=== PATIENT | male | born 1955 | race Two or more races ===

== ENCOUNTER 2016-06-30 21:04 | Emergency (ER) | payer MEDICAID ==
[2016-06-30 21:12] VITALS: TEMP 97.4; BMI 24.8
--- NOTE | 2016-06-30 21:51 | EDPRACDOC ---
- General Information Information Source: Patient, Family Mode Of Arrival: Car - History of Present Illness Onset: 3 HOURS HPI: Pt with hx of prostate CA with mets to bone undergoing radiation and chemo tx c/ o mild cp, and sob with uncontrolled pain in left arm, right arm and upper back and neck x 4 hrs. Pain was sudden onset while sitting. Also, left arm and left leg has some weakness x 20 days, with numbness and tingling. Denies PURCELL, change in vision, fever, N/V/D, cough, change in urine or BM. Has tried 2 tabs of morphine 15 mg at 7pm and 9pm without relief. Med hx = prostate CA. Denies blood thinner use. Pain Location: Reports: Cervical, Lumbar, Thoracic Pain Radiates To: Reports: Arm, Shoulder, Neck Pain Caused By: Reports: Spontaneous Circumstances: Reports: Unknown Relevant History: Reports: Cancer Pain Severity: Reports: Severe Pain Quality: Reports: Aching, Sharp Worsened By: Reports: Movement <Tra Bhatia - Last Filed: 07/01/16 00:52> <Sammy Almeida - Last Filed: 07/01/16 02:33> - General Information Chief Complaint: Back Pain Stated Complaint: BACK PAIN Home Medications: Home Medications Naloxone HCl [Narcan] 4 mg NS DIR PRN #1 spray 06/06/16 Prednisone [Deltasone, Orasone] 10 mg PO TID 06/06/16 Methadone [Dolophine] 10 mg PO TID 06/08/16 Omeprazole [Prilosec] 20 mg PO BID 06/08/16 Morphine Sulfate 1 - 2 tab PO Q4-6H PRN 06/17/16 Meclizine HCl [Antivert] 25 - 50 mg PO Q6 #20 tablet 06/18/16 Ondansetron [Zofran Odt] 4 mg PO Q6H #30 tab.rapdis 06/18/16 Amoxicillin/Potassium Clav [Augmentin 875-125 Tablet] 1 each PO BID #20 tablet 07/01/16 Azithromycin [Zithromax] 250 mg PO DAILY #6 tablet 07/01/16 Oxycodone HCl/Acetaminophen [Percocet 5-325 mg Tablet] 1 each PO Q4 #20 tablet 07/01/16 Prednisone [Sterapred 10 mg/6 day pack] 21 tab PO DIR #1 pack 07/01/16 Allergies/Adverse Reactions: Allergies Allergy/AdvReac Type Severity Reaction Status Date / Time No Known Allergies Allergy Verified 06/30/16 21:12 ED Past Medical History - History Reviewed Yes Nurses notes reviewed and agree except as marked - Patient Medical History Respiratory History: Denies: Pneumonia Psychological History: Denies: Depression, Anxiety, Substance Use Disorder Systemic History: Reports: Cancer (prostate, pelvis,bone-radiation treatments) Surgical History: Reports: Hernia Surgery, Other (ORCHIECTOMY BILATERAL) - Family Medical History Reports: Diabetes (MOTHER), Cancer (FATHER LUNG CA, HALF BROTHER PROSTATE CA), Stroke (SISTER). Denies: Hypertension, Cardiac Disorders - Social Medical History Smoking Status: Former smoker Social History: Denies: Substance Use Disorder <Tra Bhatia - Last Filed: 07/01/16 00:52> EDM Review of Systems - Review of Systems ROS Negative Except as Marked: Yes All systems reviewed and were negative except as marked Neurological: Numbness, Tingling (left hand, left leg) Musculoskeletal: Arm (left), Back, Leg (left), Shoulder (left and right) ROS Comments: prostate CA <Tra Bhatia - Last Filed: 07/01/16 00:52> - Physical Exam Constitutional: No apparent distress, Alert Oriented to: Time, Person, Place Last recorded Vital Signs: Last Vital Signs Temp 97.4 F L 06/30/16 21:09 Pulse 75 06/30/16 21:09 Resp 20 06/30/16 21:09 BP 149/72 06/30/16 21:09 Pulse Ox 98 06/30/16 21:09 Oxygen Pulse Oxygen Saturation 98 O2 Device Room Air Oxygen Flow Rate Fraction of Inspired Oxygen ( FIO2) - HEENT Head: Normal Eye Exam: negative: Conjunctival Injection, Scleral Icterus Oropharynx: negative: Drooling TMJ: Normal Nose: No Symptoms Reported Neck: Normal - Respiratory/Cardiovascular Respiratory: Normal - CTA Cardiovascular: Normal - GI Auscultation: Normal Palpation: Normal Tenderness: Non tender - Musculoskeletal Back: Other (bony and paraspinal tenderness) Extremities: Pedal Pulse, Radial Pulse, Other (bilateral arms are painful with movement and tender) - Integumentary Skin: Normal - Neurologic Motor Function: Abnormal (left hand sampler radioactive waste weak, left shoulder wopnt rise) Mood Description: Normal Thought: Coherent Perception: Normal Other Exam Findings: Weakness in rasing left shoulder and left hand sampler radioactive waste. Pt able to pull if you hold his arm, can't push. No other focal deficits noted. <Tra Bhatia - Last Filed: 07/01/16 00:52> - Physical Exam Last recorded Vital Signs: Last Vital Signs Temp 97.4 F L 06/30/16 21:09 Pulse 71 07/01/16 02:21 Resp 20 07/01/16 02:21 BP 121/64 07/01/16 02:21 Pulse Ox 98 07/01/16 02:21 Oxygen Pulse Oxygen Saturation 98 O2 Device Room Air Oxygen Flow Rate Fraction of Inspired Oxygen ( FIO2) <Sammy Almeida - Last Filed: 07/01/16 02:33> ED Back Exam - Neurologic Motor Deficit: None - Musculoskeletal Cervical: Tender (bomy and paraspinal tenderness) Thoracic: Tender (bomy and paraspinal tenderness) Lumbar: Normal <Tra Bhatia - Last Filed: 07/01/16 00:52> - Results 06/30/16 22:25 06/30/16 22:25 - EKG EKG #1 EKG Time: 22:11 -: Yes EKG interpreted by me Rate: bpm: 68 Rhythm: NSR ST: Nonsp Comparison: 06/17/16 (no sig change) - Diagnostic Imaging Head Image interpreted by: Radiologist EXAM: CT HEAD WITHOUT CONTRAST CT CERVICAL SPINE WITHOUT CONTRAST TECHNIQUE: Multidetector CT imaging of the head and cervical spine was performed following the standard protocol without intravenous contrast. Multiplanar CT image reconstructions of the cervical spine were also generated. COMPARISON: Head CT dated 06/18/16 FINDINGS: CT HEAD FINDINGS The ventricles and the sulci are appropriate in size for the patient's age. There is no intracranial hemorrhage. No midline shift or mass effect identified. The gaming-white matter differentiation is preserved. The visualized paranasal sinuses and mastoid air cells are well aerated. There is sclerotic lesion at the base of the skull compatible with known metastatic disease. The calvarium is intact. CT CERVICAL SPINE FINDINGS There is no acute fracture or subluxation of the cervical spine. There is diffuse sclerotic lesions compatible with metastatic disease. There is complete sclerosis of the C3 vertebrae. Mild multilevel degenerative changes.The odontoid and spinous processes are intact.There is normal anatomic alignment of the C1-C2 lateral masses. The visualized soft tissues appear unremarkable. A right pectoral Port-A-Cath is partially visualized. IMPRESSION: No acute intracranial pathology. Extensive multilevel cervical osseous metastatic disease. No acute fracture. Electronically Signed By: Dougie Trimble M.D. On: 07/01/2016 00:25 <Tra Bhatia - Last Filed: 07/01/16 00:52> - Results 06/30/16 22:25 06/30/16 22:25 WBC 5.1 xk/uL (3.8-10.8) 06/30/16 22:25 RBC 3.18 xM/uL (4.70-6.10) L 06/30/16 22:25 Hgb 9.2 g/dL (14.0-18.0) L 06/30/16 22:25 Hct 27.3 % (42-52) L 06/30/16 22:25 MCV 86 fL (80-94) 06/30/16 22:25 MCH 29.0 pg (27-32) 06/30/16 22:25 MCHC 33.8 g/dl (33-36) 06/30/16 22:25 RDW 18.3 % (11.5-14.5) H 06/30/16 22:25 Plt Count 173 xk/uL (130-400) 06/30/16 22:25 MPV 6.3 fL (7.4-10.4) L 06/30/16 22:25 Neut % (Auto) 84.7 % (45-76) H 06/30/16 22:25 Lymph % (Auto) 8.2 % (17-44) L 06/30/16 22:25 [place] % (Auto) 6.7 % (3-10) 06/30/16 22:25 Eos % (Auto) 0.1 % (0-5) 06/30/16 22:25 Baso % (Auto) 0.3 % (0-2) 06/30/16 22:25 Absolute Neuts (auto) 4.28 xk/uL (1.7-8.2) 06/30/16 22:25 Absolute Lymphs (auto) 0.41 xk/uL (0.65-4.75) L 06/30/16 22:25 PT 11.4 SEC (9.2-11.2) H 06/30/16 22:25 INR 1.1 06/30/16 22:25 APTT 31.6 SEC (22-35) 06/30/16 22:25 D-Dimer Quant (PE/DVT) 4771 ng/mL (<500) H 06/30/16 22:25 Sodium 127 mEq/L (137-146) L 06/30/16 22:25 Potassium 3.7 mEq/L (3.5-5.1) 06/30/16 22:25 Chloride 91 mEq/L (98-107) L 06/30/16 22:25 Carbon Dioxide 29 mMOL/L (22-33) 06/30/16 22:25 Anion Gap 11 mEq/L (8-16) 06/30/16 22:25 BUN 13 MG/DL (9-20) 06/30/16 22:25 Creatinine 0.60 MG/DL (0.66-1.25) L 06/30/16 22:25 Estimated GFR (MDRD) > 60 mL/min (>=60) 06/30/16 22:25 Glucose 109 MG/DL (70-99) H 06/30/16 22:25 Calculated Osmolality 246 MOs/Kg (270-290) L 06/30/16 22:25 Calcium 7.2 MG/DL (8.4-10.2) L 06/30/16 22:25 Corrected Calcium 7.9 MG/DL (8.4-10.2) L 06/30/16 22:25 Total Bilirubin 0.8 MG/DL (0.2-1.3) 06/30/16 22:25 AST 42 IU/L (17-59) 06/30/16 22:25 ALT 39 IU/L (21-72) 06/30/16 22:25 Alkaline Phosphatase 111 IU/L (50-160) 06/30/16 22:25 Troponin I < 0.01 ng/mL (<.04) 06/30/16 22:25 Total Protein 7.3 G/DL (6.3-8.2) 06/30/16 22:25 Albumin 3.3 G/DL (3.5-5.0) L 06/30/16 22:25 Urine Color Yellow 01/01/17 00:27 Urine Clarity Clear 07/01/16 00:27 Urine pH 7.0 (5.0-8.0) 07/01/16 00:27 Ur Specific [place] 1.005 (1.003-1.035) 07/01/16 00:27 Urine Protein Neg (NEG/TRACE) 07/01/16 00:27 Urine Glucose (UA) Neg (NEGATIVE) 07/01/16 00:27 Urine Ketones Neg (NEGATIVE) 07/01/16 00:27 Urine Occult Blood Neg (NEG/TRACE) 07/01/16 00:27 Urine Nitrite Neg (NEGATIVE) 07/01/16 00:27 Urine Bilirubin Neg (NEGATIVE) 07/01/16 00:27 Urine Urobilinogen <2.0 MG/DL (0-1) 07/01/16 00:27 Ur Leukocyte Esterase Neg (NEGATIVE) 07/01/16 00:27 Urine RBC 0-2 (0-2) 07/01/16 00:27 Urine WBC 0-2 (0-2) 07/01/16 00:27 Urine Bacteria Few (NEG/FEW) 07/01/16 00:27 Lab Results 07/01/16 06/30/16 06/30/16 00:27 22:25 22:25 WBC RBC Hgb Hct MCV MCH MCHC RDW Plt Count MPV Neut % (Auto) Lymph % (Auto) [place] % (Auto) Eos % (Auto) Baso % (Auto) Absolute Neuts (auto) Absolute Lymphs (auto) PT 11.4 H INR 1.1 APTT 31.6 D-Dimer Quant (PE/DVT) 4771 H Sodium Potassium Chloride Carbon Dioxide Anion Gap BUN Creatinine Estimated GFR (MDRD) Glucose Calculated Osmolality Calcium Corrected Calcium Total Bilirubin AST ALT Alkaline Phosphatase Troponin I Total Protein Albumin Urine Color Yellow Urine Clarity Clear Urine pH 7.0 Ur Specific [place] 1.005 Urine Protein Neg Urine Glucose (UA) Neg Urine Ketones Neg Urine Occult Blood Neg Urine Nitrite Neg Urine Bilirubin Neg Urine Urobilinogen <2.0 Ur Leukocyte Esterase Neg Urine RBC 0-2 Urine WBC 0-2 Urine Bacteria Few 06/30/16 06/30/16 22:25 22:25 WBC 5.1 RBC 3.18 L Hgb 9.2 L Hct 27.3 L MCV 86 MCH 29.0 MCHC 33.8 RDW 18.3 H Plt Count 173 MPV 6.3 L Neut % (Auto) 84.7 H Lymph % (Auto) 8.2 L [place] % (Auto) 6.7 Eos % (Auto) 0.1 Baso % (Auto) 0.3 Absolute Neuts (auto) 4.28 Absolute Lymphs (auto) 0.41 L PT INR APTT D-Dimer Quant (PE/DVT) Sodium 127 L Potassium 3.7 Chloride 91 L Carbon Dioxide 29 Anion Gap 11 BUN 13 Creatinine 0.60 L Estimated GFR (MDRD) > 60 Glucose 109 H Calculated Osmolality 246 L Calcium 7.2 L Corrected Calcium 7.9 L Total Bilirubin 0.8 AST 42 ALT 39 Alkaline Phosphatase 111 Troponin I < 0.01 Total Protein 7.3 Albumin 3.3 L Urine Color Urine Clarity Urine pH Ur Specific [place] Urine Protein Urine Glucose (UA) Urine Ketones Urine Occult Blood Urine Nitrite Urine Bilirubin Urine Urobilinogen Ur Leukocyte Esterase Urine RBC Urine WBC Urine Bacteria <Sammy Almeida - Last Filed: 07/01/16 02:33> <Tra Bhatia - Last Filed: 07/01/16 00:52> Decision Time to Discharge: 02:29 - Departure Yes I personally saw and evaluated the patient. Disposition: Home Education/Counseling Given To: Patient Education/Counseling Given Regarding: Diagnosis, Treatment, Prognosis, Follow Up <Sammy Almeida - Last Filed: 07/01/16 02:33> - Departure Condition: Good Final Diagnosis: Cervical radiculopathy, Prostate cancer metastatic to bone Right lower lobe pneumonia Qualifiers: Pneumonia type: due to unspecified organism Qualified Code(s): J18.1 - Lobar pneumonia, unspecified organism Instructions: Bacterial Pneumonia (ED) Referrals: None,No Provider [Primary Care Provider] - One Week Jimmy Gagnon MD [Staff Physician] - One Week Benjamín Fuller MD [Staff Physician] - One Week Prescriptions: Amoxicillin/Potassium Clav [Augmentin 875-125 Tablet] 1 each PO BID #20 tablet Azithromycin [Zithromax] 250 mg PO DAILY #6 tablet Oxycodone HCl/Acetaminophen [Percocet 5-325 mg Tablet] 1 each PO Q4 #20 tablet Prednisone [Sterapred 10 mg/6 day pack] 21 tab PO DIR #1 pack
[2016-06-30] MEDS ORDERED: ONDANSETRON HCL 4 MG/2 ML VIAL IV ONE (21:59)
[2016-06-30] MEDS ORDERED: HYDROmorphone 1 MG INJECTION IV ONE (21:59)
[2016-06-30 22:50] LABS: AUTOMATED BASOPHIL 0.3 % (0-2); AUTOMATED EOSINOPHIL 0.1 % (0-5); AUTOMATED LYMPH 8.2 % (17-44); AUTOMATED MONOCYTE 6.7 % (3-10); AUTOMATED NEUTROPHIL 84.7 % (45-76); MPV 6.3 fL (7.4-10.4)
[2016-06-30 23:01] LABS: PARTIAL THROMB. TIME 31.6 SEC (22-35); PT-INR 1.1
[2016-06-30 23:03] LABS: BLOOD UREA NITROGEN 13 MG/DL (9-20); CALC CORRECTED 7.9 MG/DL (8.4-10.2); CALCIUM 7.2 MG/DL (8.4-10.2); CALCULATED OSMOLALITY 246 MOs/Kg (270-290); CHLORIDE 91 mEq/L (98-107); GLUCOSE 109 MG/DL (70-99); SODIUM LEVEL 127 mEq/L (137-146); TOTAL PROTEIN 7.3 G/DL (6.3-8.2)
--- NOTE | 2016-07-01 00:27 | DIRPT ---
CLINICAL DATA: 61-year-old male with weakness and neck pain. Metastatic bone lesions. EXAM: CT HEAD WITHOUT CONTRAST CT CERVICAL SPINE WITHOUT CONTRAST TECHNIQUE: Multidetector CT imaging of the head and cervical spine was performed following the standard protocol without intravenous contrast. Multiplanar CT image reconstructions of the cervical spine were also generated. COMPARISON: Head CT dated 06/18/16 FINDINGS: CT HEAD FINDINGS The ventricles and the sulci are appropriate in size for the patient's age. There is no intracranial hemorrhage. No midline shift or mass effect identified. The gaming-white matter differentiation is preserved. The visualized paranasal sinuses and mastoid air cells are well aerated. There is sclerotic lesion at the base of the skull compatible with known metastatic disease. The calvarium is intact. CT CERVICAL SPINE FINDINGS There is no acute fracture or subluxation of the cervical spine. There is diffuse sclerotic lesions compatible with metastatic disease. There is complete sclerosis of the C3 vertebrae. Mild multilevel degenerative changes.The odontoid and spinous processes are intact.There is normal anatomic alignment of the C1-C2 lateral masses. The visualized soft tissues appear unremarkable. A right pectoral Port-A-Cath is partially visualized. IMPRESSION: No acute intracranial pathology. Extensive multilevel cervical osseous metastatic disease. No acute fracture. Electronically Signed By: Dougie Trimble M.D. On: 07/01/2016 00:25
[2016-07-01 00:48] LABS: LEUKOCYTES/URINE NEG (NEGATIVE); NITRITE/URINE NEG (NEGATIVE); RBC/URINE 0-2 (0-2); URINE OCCULT BLOOD NEG (NEG/TRACE); WBC/URINE 0-2 (0-2)
[2016-07-01] MEDS ORDERED: ONDANSETRON HCL 4 MG/2 ML VIAL IV ONE (00:51)
[2016-07-01] MEDS ORDERED: HYDROmorphone 1 MG INJECTION IV ONE (00:51)
[2016-07-01] MEDS ORDERED: Pharmacy Review for Metformin - IV Contrast Given SCH (01:00)
--- NOTE | 2016-07-01 02:26 | DIRPT ---
CLINICAL DATA: 61-year-old male with chest pain EXAM: CT ANGIOGRAPHY CHEST WITH CONTRAST TECHNIQUE: Multidetector CT imaging of the chest was performed using the standard protocol during bolus administration of intravenous contrast. Multiplanar CT image reconstructions and MIPs were obtained to evaluate the vascular anatomy. CONTRAST: 80 cc Isovue 370 COMPARISON: Chest radiograph dated 06/18/16 FINDINGS: Evaluation is limited due to streak artifact caused by patient's arms. To the patchy area nodularity involving the right lung base most compatible with pneumonia. There is stable appearing scarring with pneumatocele in the superior segment of the right lower lobe. There is minimal nodularity of the right upper lobe. No pleural effusion or pneumothorax. The central airways are patent. The thoracic aorta appears unremarkable. No CT evidence of pulmonary embolism. No cardiomegaly or pericardial effusion. There is no hilar or mediastinal adenopathy. The esophagus appears grossly unremarkable. There is no axillary adenopathy. Right pectoral Port-A-Cath with tip in the central SVC. The chest wall soft tissues appear unremarkable. There are extensive sclerotic lesions throughout the osseous structures compatible with metastatic disease. No acute fracture. There multiple stones within the gallbladder. Partially visualized mild left and moderate right hydronephrosis. Review of the MIP images confirms the above findings. IMPRESSION: No CT evidence of pulmonary embolism. Right lower lobe pneumonia. Follow-up to resolution recommended. Metastatic osseous disease. Bilateral hydronephrosis. Cholelithiasis. Electronically Signed By: Dougie Trimble M.D. On: 07/01/2016 02:23
[2016-07-01] MEDS ORDERED: HEPARIN 5000 UNITS/ML VIAL ONE (02:47)
[2016-07-01] MEDS ORDERED: HEPARIN 500 UNITS/5 ML (100 UNITS/ML) SYR FLUSH ONE (02:55)
[2016-07-01 03:10] VITALS: BP 128/76; PULSE 74
== END 2016-07-01 03:05 | disposition home or self-care (01) ==
LOC: ED 21:04
DX: M54.12 Radiculopathy, cervical region (principal); J18.1 Lobar pneumonia, unspecified organism; C61 Malignant neoplasm of prostate; C79.51 Secondary malignant neoplasm of bone
CPT/HCPCS: 36415; 70450; 71275; 72125; 80053; 81001; 84484; 85025; 85379; 85610; 85730; 93005; 96374; 96375; 96376; 99284; A9698; J1170; J1642; J2405; J1644

== ENCOUNTER 2016-07-04 09:42 | Emergency (ER) | payer MEDICAID ==
[2016-07-04 09:54] VITALS: BP 126/73; PULSE 80; TEMP 98; BMI 24.3
== END 2016-07-04 10:40 | disposition left against medical advice (07) ==
LOC: ED 09:42
DX: M25.519 Pain in unspecified shoulder (principal); C61 Malignant neoplasm of prostate; C79.51 Secondary malignant neoplasm of bone; Z53.21 Procedure and treatment not carried out due to patient leaving prior to being seen by health care provider
CPT/HCPCS: 99281